=== PATIENT | female | born 1940 | race African-American/Black ===

== ENCOUNTER 2018-04-08 10:29 | Day surgery (SDC) | payer MEDICARE ==
[~2018-04-08 10:29] MED LIST: BESIFLOXACIN HCL 0.6% OPH SUSP 5 ML BOTTLE OS PRN; CHONDR SU A NA/HYALUR INTRAOC KIT (SURGICARE) ONE; CYCLOPENTOLATE 0.2%/PHENYLEPHRINE 1% OPH SOLN 2 ML OS PRN; EPINEPHRINE INJ/PF 1 MG/1 ML AMPULE ONE; KETOROLAC TROMETHAMINE 0.45% 4 DROP/0.4 ML DROPERETTE OS PRN; LIDOCAINE 1% INJ-PF (10 MG/ML) 30 ML SDV ONE; TETRACAINE HCL 0.5% OPH SOLN 2 ML OS PRN; TROPICAMIDE 1% OPH SOLN 3 ML OS PRN; TRYPAN BLUE 0.06 % OPH SOLN 0.5 ML DISP.SYRIN ONE
== END 2018-04-08 11:10 | disposition home or self-care (01) ==
LOC: SC 10:29
PROVIDERS: ATTEND Internal Medicine
DX: R69 Illness, unspecified (principal)
CPT/HCPCS: J0171; J3490

== ENCOUNTER 2018-04-22 10:12 | Day surgery (SDC) | payer MEDICARE ==
[~2018-04-22 10:12] MED LIST changes: -BESIFLOXACIN HCL 0.6% OPH SUSP 5 ML BOTTLE OS PRN; -CYCLOPENTOLATE 0.2%/PHENYLEPHRINE 1% OPH SOLN 2 ML OS PRN; -TETRACAINE HCL 0.5% OPH SOLN 2 ML OS PRN; -TROPICAMIDE 1% OPH SOLN 3 ML OS PRN
[2018-04-22] MEDS: BESIFLOXACIN HCL 0.6% OPH SUSP 5 ML BOTTLE OS PRN ×3 (11:58→12:58)
[2018-04-22] MEDS: TETRACAINE HCL 0.5% OPH SOLN 2 ML OS PRN ×3 (11:58→12:37)
[2018-04-22] MEDS: CYCLOPENTOLATE 0.2%/PHENYLEPHRINE 1% OPH SOLN 2 ML OS PRN ×3 (11:58→12:30)
[2018-04-22] MEDS: TROPICAMIDE 1% OPH SOLN 3 ML OS PRN ×3 (11:58→12:30)
[2018-04-22] MEDS ORDERED: MIDAZOLAM 2 MG/2 ML INJ ONE (12:37)
[2018-04-22] MEDS ORDERED: FENTANYL CITRATE INJ/PF 100 MCG/2 ML AMPUL ONE (12:37)
--- NOTE | 2018-04-22 20:24 | [facility] OPERATIVE REPORT E ---
[facility] Operative Report NAME: CARLENE BECERRA AGE: 77Y DATE OF SURGERY: 04/22/2018 ROOM: PREOPERATIVE DIAGNOSIS: CATARACT, LEFT EYE. POSTOPERATIVE DIAGNOSIS: CATARACT, LEFT EYE. OPERATION: Cataract extraction with insertion of an IOL of the left eye. SURGEON: SANDRITA LOMAS M.D. ANESTHESIA: Topical. PROCEDURE: After obtaining appropriate consent, the patient's left eye was prepped and draped in sterile fashion as well as the surgeon in a sterile manner and cataract surgery was started. First a paracentesis blade was used to make a side-port incision. Viscoelastic was used to inflate the anterior chamber. Next a 2.4 mm incision was made with a 2.4 mm blade, clear corneal temporally. A continuous capsulorrhexis was made using a cystotome and Utrata forceps. Following this hydrodissection was carried out to make the lens fully loose and mobile and it was rotated 90 degrees. Following this, a ltzbod-mkk-nnsiyro technique was used to phacoemulsify the lens with a CDE of 6.05. The remaining cortex was removed with irrigation/aspiration. Provisc was instilled into the capsular bag to inflate the bag. A SN60WF, 27.5 diopter lens was placed. The remaining viscoelastic material was removed with irrigation/aspiration. Following this, the incision was found to be watertight. Besivance was instilled into the eye and a protective shield was placed over the eye. The patient returned to the postoperative recovery in stable condition. DICTATING PHYSICIAN: SANDRITA LOMAS M.D. [id number] PHY#: [id number] ID: [id number] JOB#: [id number] ACCT: [id number] cc:SANDRITA LOMAS M.D. >
--- NOTE | 2018-04-22 20:24 | [facility] DISCHARGE SUMMARY E ---
[facility] Discharge Summary NAME: CARLENE BECERRA AGE: 77Y ADMITTED: 04/22/2018 DISCHARGED: 04/22/2018 FINAL DIAGNOSIS: Cataract, left eye. HOSPITAL COURSE: This is a 77-year-old female who underwent cataract extraction of the left eye. She underwent surgery because she was having trouble seeing captions on the television. She should be on a regular diet. No bending at her waist, no heavy lifting. She should use Besivance, Ilevro and Durezol at 3:00 p.m. and 8:00 p.m. Sleep with a rigid shield. I will see her for a 1-day postoperative tomorrow. DICTATING PHYSICIAN: SANDRITA LOMAS M.D. [id number] PHY#: [id number] ID: [id number] JOB#: [id number] ACCT: [id number] cc:SANDRITA LOMAS M.D. >
== END 2018-04-22 13:45 | disposition home or self-care (01) ==
LOC: SC 10:12
PROVIDERS: ATTEND Internal Medicine
DX: H25.89 Other age-related cataract (principal); H04.123 Dry eye syndrome of bilateral lacrimal glands; I10 Essential (primary) hypertension; K21.9 Gastro-esophageal reflux disease without esophagitis; Z79.899 Other long term (current) drug therapy; Z79.82 Long term (current) use of aspirin
CPT/HCPCS: 66984; V2632; J2250; J3490 ×2; A9270; J0171; J3010; 142

== ENCOUNTER 2018-05-27 09:12 | Day surgery (SDC) | payer MEDICARE ==
[~2018-05-27 09:12] MED LIST changes: +KETOROLAC TROMETHAMINE 0.45% 4 DROP/0.4 ML DROPERETTE OD PRN; -KETOROLAC TROMETHAMINE 0.45% 4 DROP/0.4 ML DROPERETTE OS PRN; -TRYPAN BLUE 0.06 % OPH SOLN 0.5 ML DISP.SYRIN ONE
[2018-05-27] MEDS: CYCLOPENTOLATE 0.2%/PHENYLEPHRINE 1% OPH SOLN 2 ML OD PRN ×3 (09:34→10:00)
[2018-05-27] MEDS: TROPICAMIDE 1% OPH SOLN 3 ML OD PRN ×3 (09:34→10:00)
[2018-05-27] MEDS: BESIFLOXACIN HCL 0.6% OPH SUSP 5 ML BOTTLE OD PRN ×3 (09:35→10:30)
[2018-05-27] MEDS: TETRACAINE HCL 0.5% OPH SOLN 2 ML OD PRN ×3 (09:36→10:08)
[2018-05-27] MEDS ORDERED: MIDAZOLAM 2 MG/2 ML INJ ONE ×2 (09:54)
--- NOTE | 2018-05-28 13:40 | [facility] OPERATIVE REPORT E ---
[facility] Operative Report NAME: CARLENE BECERRA AGE: 77Y DATE OF SURGERY: 05/28/2018 ROOM: PREOPERATIVE DIAGNOSIS: Cataract, right eye. POSTOPERATIVE DIAGNOSIS: Cataract, right eye. OPERATION: Cataract extraction with insertion of an IOL of the right eye. SURGEON: SANDRITA LOMAS M.D. ANESTHESIA: Topical. DESCRIPTION OF PROCEDURE: After obtaining appropriate consent, the patient's right eye was prepped and draped in sterile fashion as well as the surgeon in a sterile manner and cataract surgery was started. First a paracentesis blade was used to make a side-port incision. Viscoelastic was used to inflate the anterior chamber. Next a 2.4 mm incision was made with a 2.4 mm blade, clear corneal temporally. A continuous capsulorrhexis was made using a cystotome and Utrata forceps. Following this hydrodissection was carried out to make the lens fully loose and mobile and it was rotated 90 degrees. Following this, a gcscgc-xsz-cykpuga technique was used to phacoemulsify the lens with a CDE of 5.25. The remaining cortex was removed with irrigation/aspiration. Provisc was instilled into the capsular bag to inflate the bag. A SN60WF, 26.5 diopter lens was placed. The remaining viscoelastic material was removed with irrigation/aspiration. Following this, the incision was found to be watertight. Besivance was instilled into the eye and a protective shield was placed over the eye. The patient returned to the postoperative recovery in stable condition. DICTATING PHYSICIAN: SANDRITA LOMAS M.D. [id number] PHY#: [id number] ID: [id number] JOB#: [id number] ACCT: [id number] cc:SANDRITA LOMAS M.D. >
--- NOTE | 2018-05-28 13:45 | [facility] DISCHARGE SUMMARY E ---
[facility] Discharge Summary NAME: CARLENE BECERRA AGE: 77Y ADMITTED: 05/27/2018 DISCHARGED: 05/27/2018 This is a 77-year-old female who underwent cataract extraction of the right eye. DIAGNOSIS: Cataract, right eye. INDICATIONS: She underwent surgery, as she was having trouble with increased glare with nighttime driving. INSTRUCTIONS: She should be on a regular diet, no bending at her waist, no heavy lifting. She should use her Besivance, Ilevro, and Durezol at 3:00 p.m. and 8:00 p.m. and sleep with a rigid shield, and I will see her for a 1-day postoperative tomorrow. DICTATING PHYSICIAN: SANDRITA LOMAS M.D. [id number] PHY#: [id number] ID: [id number] JOB#: [id number] ACCT: [id number] cc:SANDRITA LOMAS M.D. >
== END 2018-05-27 11:27 | disposition home or self-care (01) ==
LOC: SC 09:12
PROVIDERS: ATTEND Internal Medicine
PROC: 08RJ3JZ Replacement of Right Lens with Synthetic Substitute, Percutaneous Approach (ICD-10-PCS; principal; 2018-05-27 10:30)
DX: H25.011 Cortical age-related cataract, right eye (principal); I10 Essential (primary) hypertension
CPT/HCPCS: 66984; V2632; J2250; J3490 ×2; A9270; J0171; 142